=== PATIENT | male | born 1995 | race Caucasian/White ===

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

== ENCOUNTER 2017-09-01 12:28 | Emergency (ER) | payer OTHER ==
[2017-09-01 13:38] VITALS: BP 110/80
--- NOTE | 2017-09-01 14:51 | UC ---
Shoulder Pain HPI - HPI Summary HPI Summary: trapezous and left anterior shoulder pain for a few days---does push ups everyday but no other repetitive stress to shoulder---no acute injury - History of Current Complaint Chief Complaint: UCUpperExtremity Stated Complaint: LEFT SHOULDER PAIN Time Seen by Provider: 09/01/17 14:42 Hx Obtained From: Patient Onset/Duration: Sudden Onset, Lasting Days, Still Present Timing: Constant Severity Initially: Moderate Severity Currently: Moderate Location Of Pain: Is Discrete @ Pain Intensity: 7 Character: Aching Aggravating Factor(s): Movement, Lifting, Extension Related History: Dominant Hand Right - Allergies/Home Medications Allergies/Adverse Reactions: Allergies Allergy/AdvReac Type Severity Reaction Status Date / Time azithromycin Allergy Hives Verified 09/01/17 13:35 Home Medications: Home Medications Amitriptyline TAB* [Elavil TAB*] 25 mg PO BEDTIME 09/01/17 [History Confirmed ] PMH/Surg Hx/FS Hx/Imm Hx Previously Healthy: Yes Neurological History: Migraine - Surgical History Surgical History: None - Family History Known Family History: Negative: Cardiac Disease, Hypertension, Diabetes Family History: no cardio vascular issues in family lineage - Social History Occupation: Employed Full-time Lives: With Family Alcohol Use: None Substance Use Type: None Smoking Status (MU): Never Smoked Tobacco Type: Cigarettes Amount Used/How Often: 1 per week - Immunization History Most Recent Tetanus Shot: 10/2016 Review of Systems Constitutional: Negative Skin: Negative Eyes: Negative ENT: Negative Respiratory: Negative Cardiovascular: Negative Gastrointestinal: Negative Genitourinary: Negative Motor: Negative Neurovascular: Negative Musculoskeletal: Arthralgia - left shoulder, Myalgia - left shoulder Neurological: Negative Psychological: Negative Is Patient Immunocompromised?: No All Other Systems Reviewed And Are Negative: Yes Physical Exam Triage Information Reviewed: Yes Appearance: Well-Appearing, No Pain Distress, Well-Nourished Vital Signs: Initial Vital Signs Temp 98.5 F 09/01/17 13:32 Pulse 79 09/01/17 13:32 Resp 16 09/01/17 13:32 BP 110/80 09/01/17 13:32 Pulse Ox 100 09/01/17 13:32 Vital Signs Reviewed: Yes Eye Exam: Normal Eyes: Positive: Conjunctiva Clear ENT Exam: Normal ENT: Positive: Normal ENT inspection, Hearing grossly normal. Negative: Nasal congestion, Nasal drainage, Trismus, Muffled voice, Hoarse voice Dental Exam: Normal Neck exam: Normal Neck: Positive: Supple, Nontender, No Lymphadenopathy Respiratory Exam: Normal Respiratory: Positive: Chest non-tender, Lungs clear, Normal breath sounds, No respiratory distress, No accessory muscle use Cardiovascular Exam: Normal Cardiovascular: Positive: RRR, Pulses Normal, Brisk Capillary Refill Musculoskeletal Exam: Normal Musculoskeletal: Positive: Strength Intact, No Edema, ROM Limited @ - left shoulder Neurological Exam: Normal Neurological: Positive: Alert, Muscle Tone Normal Psychological Exam: Normal Skin Exam: Normal Shoulder Course/Dx - Course Assessment/Plan: nsaids, flexeril, physical therapy, stop push ups until pain resolved, follow with ortho prn - Differential Dx/Diagnosis Provider Diagnoses: Muscle strain left shoulder Discharge - Discharge Plan Condition: Stable Disposition: HOME Prescriptions: Cyclobenzaprine TAB* [Flexeril 10 MG TAB*] 10 mg PO TID PRN #15 tab PRN Reason: muscle tightness/spasm Naproxen Sodium [Naproxen Sodium 500 MG TAB] 500 mg PO BID PRN #40 tab PRN Reason: muscular skeletal pain Patient Education Materials: Shoulder Pain (ED) Referrals: Isreal Jacobsen MD [Medical Doctor] - If Needed
== END 2017-09-01 15:09 | disposition home or self-care (01) ==
LOC: UCCORT 12:28
DX: F17.210 Nicotine dependence, cigarettes, uncomplicated (principal); S46.912A Strain of unspecified muscle, fascia and tendon at shoulder and upper arm level, left arm, initial encounter; X50.3XXA Overexertion from repetitive movements, initial encounter; Y93.B2 Activity, push-ups, pull-ups, sit-ups; Y92.9 Unspecified place or not applicable
CPT/HCPCS: 99212; G0463

== ENCOUNTER 2019-07-30 11:35 | Emergency (ER) | payer OTHER ==
--- OUTSIDE RECORDS SUMMARY | 2019-07-30 13:05 | XMS REPORT | Continuity of Care Document ---
:1995 External Reference #:[id number] Author Name Carolyne Simeon NP Address [address] [place] [address] Care Team Providers Name Role Phone [facility] Care Team Information Clinical Applications Manager [phone] Kit Palacio PH.D. - Care Team Information Clinical Applications Manager [phone] [facility] Care Team Information Clinical Applications Manager - Mental Health Carolyne Simeon NP - Family Care Team Information Clinical Applications Manager [phone] Problems Active Problems Provider Date Nocturnal enuresis Zenon Clark DO Onset: 04/10/2005 Generalized anxiety disorder Ashlyn Brunner NP Onset: 09/09/2018 Moderate major depression, single episode Ashlyn Brunner NP Onset: Social History Type Date Description Comments Sex Unknown ETOH Use Denies alcohol use Tobacco Use Start: Unknown Patient has never smoked Smoking Status Reviewed: 05/29/19 Patient has never smoked Allergies, Adverse Reactions, Alerts Active Allergies Reaction Severity Comments Date Zithromax Hives 05/02/2017 Medications Active Medications SIG Qnty Indications Ordering Date Provider Citalopram One tab by mouth 30tabs F32.1 Dione Licea 06/09/2019 Hydrobromide daily until gone 10mg and then Tablets discontinue Bupropion take 1 tablet by 30tabs F41.1 Patyiovanyuko, 09/09/2018 Hydrochloride ER (XL) mouth once daily EMA Goldberg 150mg Tablets ER 24HR Buspirone HCL 1 up to three times 30tabs F41.1 Patyloy, 05/16/2018 5mg a day as needed for Ashlyn, [employer] Tablets anxiety Sumatriptan Succinate 1 by mouth at 14tabs G43.109 Mundona, 05/16/2018 earliest onset of Ashlyn, [employer] 50mg Tablets migraine symptoms, may repeat in 2 hours Meclizine HCL 1 by mouth three 30tabs H81.12 Leigh Colemanew, 05/14/2018 25mg times daily as DO Tablets needed for dizziness R42 Naproxen take 1 tablet twice a 60tabs Zenon Clark, 12/14/2010 375mg Tablets day if needed for headache with food History Medications Citalopram take 1 tablet 30tabs F41.1 Kannan, 03/27/2019 - Hydrobromide by mouth once Ashlyn, [employer] 06/09/2019 20mg daily Tablets Medications Administered in Office Medication SIG Qnty Indications Ordering Provider Date PPD Ashlyn Brunner NP 03/27/2019 Injection Immunizations CPT Code Status Date Vaccine Reaction Lot # [id number] Given 03/27/2019 Gardasil-9 (HPV) Nonavalent Im inj completed, Pt [id number] 2-3 Dose Schedule Im tolerated well 49578 Given 11/23/2018 Tdap (Adacel) Ages 7 And Above Only 44418 Given 05/02/2018 Gardasil-9 (HPV) Nonavalent Im inj completed, Pt [id number] 2-3 Dose Schedule Im tolerated well Q2036 Given 07/01/2017 Flulaval Immunization 46987 Given 04/15/2014 Influenza Virus Vaccine,Quadrivalent,Split, Preserv Free, 0.5mL,[place] [address] Given 03/18/2009 Menactra/Menveo Meningococcal Vaccine 04977 Given 03/16/2008 Tdap (Adacel) Ages 7 And Above Only 48939 Given 12/26/2001 IPV / Poliomyelitis Immunization 69431 Given 12/26/2001 DTaP Immunization 6 Yrs & Younger 47255 Given 12/26/2001 MMR Virus Immunization 95127 Given 02/15/2000 Varicella (Chicken Pox) PAPER CHART Immunization 32689 Given 04/18/1998 MMR Virus Immunization PAPER CHART 43532 Given 01/17/1998 DTP & Hib Immunization PAPER CHART 54917 Given 1995 Hepatitis B Vac PAPER CHART Ped/Adolescent 3 Dose Schedule 68322 Given 1997 DTP & Hib Immunization PAPER CHART 85165 Given 1997 Oral Poliovirus PAPER CHART Immunization 28014 Given 1997 DTP & Hib Immunization PAPER CHART 42323 Given 1997 Oral Poliovirus PAPER CHART Immunization 55331 Given 1997 Hepatitis B Vac PAPER CHART Ped/Adolescent 3 Dose Schedule 92622 Given 1997 DTP & Hib Immunization PAPER CHART 63976 Given 1997 IPV / Poliomyelitis PAPER CHART Immunization 84430 Given 1997 Hepatitis B Vac PAPER CHART Ped/Adolescent 3 Dose Schedule Q2039 Refused 03/27/2019 Flu Vaccine NOS Pt says he does not get flu shots. SATISH FERRIS 03/27/19 Q2039 Refused 09/09/2018 Flu Vaccine NOS Pt says he will not be getting a flu shot this year. SATISH FERRIS 09/09/18 Q2039 Refused 05/28/2018 Flu Vaccine NOS Pt states he has not yet gotten his flu shot. SATISH FERRIS 05/28/18 Vital Signs Date Vital Result Comment 06/09/2019 3:36pm Weight 226.00 lb Heart Rate 80 /min BP Systolic 128 mmHg BP Diastolic 72 mmHg Respiratory Rate 18 /min Height 69.25 inches 5'9.25" BMI (Body Mass Index) 33.1 kg/m2 05/29/2019 2:56pm Weight 225.00 lb Heart Rate 82 /min BP Systolic 132 mmHg BP Diastolic 72 mmHg Respiratory Rate 18 /min Height 69.25 inches 5'9.25" BMI (Body Mass Index) 33.0 kg/m2 Results Test Acquired Date Facility Test Result H/L Range Note GC/Chlamydia 05/29/2019 [facility] URINE, COLLECTIO 1 /Trich Ampl Description <SEE NOTE> Dna-RL C. Trachomatis NEGATIVE (Neg) 2 N. Gonorrhoeae NEGATIVE (Neg) 3 T Vaginalis NEGATIVE (Neg) 4 Comment IMPORTANT REM <SEE NOTE> 5 1 URINE, COLLECTION METHOD NOT SPECIFIED 2 THIS ASSAY AMPLIFIES AND DETECTS THE TARGET DNA USING REAL-TIME PCR. 3 THIS ASSAY AMPLIFIES AND DETECTS THE TARGET DNA USING REAL-TIME PCR. 4 THIS ASSAY AMPLIFIES AND DETECTS THE TARGET DNA USING REAL-TIME PCR. 5 IMPORTANT REMINDERS ABOUT URINE SPECIMEN COLLECTION THE PATIENT SHOULD NOT HAVE URINATED FOR AT LEAST ONE HOUR PRIOR TO COLLECTION. FEMALE PATIENTS SHOULD NOT CLEANSE PRIOR TO COLLECTING URINE SPECIMENS THIS MAY INTERFERE WITH THE TEST. THE PATIENT SHOULD PROVIDE 20-30 ML OF THE INITIAL URINE STREAM INTO A CONTAINER WITHOUT PRESERVATIVES. Unless otherwise specified, testing performed by [facility] [address] [place] [id number] Procedures Date Code Description Status 06/09/2019 49502 Brief Emotional/Behav Assessment W/ Scoring Doc Per Completed Standard Inst 04/30/2019 45535 Brief Emotional/Behav Assessment W/ Scoring Doc Per Completed Standard Inst 03/27/2019 17702 Brief Emotional/Behav Assessment W/ Scoring Doc Per Completed Standard Inst 12/23/2018 49150 Brief Emotional/Behav Assessment W/ Scoring Doc Per Completed Standard Inst Medical Devices Description No Information Available Encounters Type Date Location Provider Dx Diagnosis Office Visit 04/30/2019 [facility] Carolyne Simeon NP F41.1 Generalized anxiety 3:30p disorder F32.1 Major depressive disorder, single episode, moderate Office Visit 03/30/2019 9:15a [facility] Schedule, Nurses Z11.1 Encounter for screening for respiratory tuberculosis Office Visit 03/27/2019 11:30a [facility] Ashlyn Brunner, F41.1 Generalized anxiety [employer] disorder F32.1 Major depressive disorder, single episode, moderate Z68.33 Body mass index (BMI) 33.0-33.9, adult Z23 Encounter for immunization Z11.1 Encounter for screening for respiratory tuberculosis Office Visit 12/23/2018 11:30a [facility] Ashlyn Brunner, F32.1 Major depressive [employer] disorder, single episode, moderate F41.1 Generalized anxiety disorder R68.84 Jaw pain Z68.29 Body mass index (BMI) 29.0-29.9, adult Assessments Date Code Description Provider 06/09/2019 F32.1 Major depressive disorder, single episode, Carolyne Simeon NP moderate 06/09/2019 F41.1 Generalized anxiety disorder Carolyne Simeon NP 06/09/2019 Z68.33 Body mass index (BMI) 33.0-33.9, adult Carolyne Simeon NP 05/29/2019 Z11.3 Encounter for screening for infections Carolyne Simeon NP with a predominantly sexual mode of transmission 04/30/2019 F41.1 Generalized anxiety disorder Carolyne Simeon, EMA 04/30/2019 F32.1 Major depressive disorder, single episode, Carolyne Simeon NP moderate 03/30/2019 Z11.1 Encounter for screening for respiratory DigiovannaAnnieAshlyn, [employer]ER tuberculosis 03/30/2019 Z11.1 Encounter for screening for respiratory Schedule, Nurses tuberculosis 03/27/2019 F41.1 Generalized anxiety disorder DigiovannaAnnieAshlyn, DOOR [employer]SEM[employer]ER 03/27/2019 F32.1 Major depressive disorder, single episode, Digiovanna, Ashlyn, [employer] moderate 03/27/2019 Z68.33 Body mass index (BMI) 33.0-33.9, adult Ashlyn Brunner, [employer] 03/27/2019 Z23 Encounter for immunization DigioAnnie seguraricia, [employer]ER 03/27/2019 Z11.1 Encounter for screening for respiratory DigiovannaAnnieAshlyn, DOOR [employer]SEM[employer]ER tuberculosis 12/23/2018 F32.1 Major depressive disorder, single episode, Digiovanna, Ashlyn, [employer]ER moderate 12/23/2018 F41.1 Generalized anxiety disorder Digiovanna, Ashlyn, [employer]OR [employer]ER 12/23/2018 R68.84 Jaw pain Digioimelda, Ashlyn, [employer]ER 12/23/2018 Z68.29 Body mass index (BMI) 29.0-29.9, adult Ashlyn Brunner [employer] Plan of Treatment Future Appointment(s):07/10/2019 1:45 pm - Carolyne Simeon NP at [facility]06/09/2019 - Carolyne Simeon NPF32.1 Major depressive disorder, single episode, moderateNew Medication:Citalopram Hydrobromide 10 mg - One tab by mouth daily until gone and then discontinueComments:PHQ9: 10, down from 20Continue current dose of Bupropion and decrease celexa to 10 mg daily x 4 weeks then discontinue completely. Advised changing medication can cause acute symptoms to occur as well as thoughts of self-harm. Is agreeable to call if these develop or go directly to [facility].R[facility] for an evaluation. [facility]. Discussed benefits of initiating exercise program and incorporating well-balanced diet Will followFollow up:In one month for re- evaluation. Will need PHQ9 and CPU0N95.1 Generalized anxiety disorderComments: GAD7:8 up from 7, previously down from 12Plan as above.Z68.33 Body mass index ( BMI) 33.0-33.9, adultComments:Encouraged healthy well balanced diet with plenty of fluids and fiber.Attempt to increase daily exercise, aim for 60-90' daily. Functional Status Description No Information Available Mental Status Description No Information Available Referrals Refer to Reason for Referral Status Appt Date [facility] Mental Health Evaluation and treatment for Closed 04/03/2019 Clinic increasing depression and anxiety forms faxed in order for patient to go down and fill out packet in order to get an appointment scheduled/scg 03/27 contacted pt and he stated that he has had 3 office visits with mental health and is seeing them regularly 04/22 ms [facility] [id number] [phone]
[2019-07-30 13:21] VITALS: BP 137/80
[2019-07-30 13:42] LABS: Influenza A Molecular NEGATIVE (Negative); Influenza B Molecular NEGATIVE (Negative)
--- NOTE | 2019-07-30 13:43 | UC ---
Throat Pain/Nasal Natanael HPI - HPI Summary HPI Summary: 24-year-old male who has had cold symptoms with head congestion and dry cough over the past 2 weeks progressively worsening now with sinus pressure and postnasal drainage. He states nasal coryza is greenish yellow. States last evening he started having a fever and body aches, flulike symptoms. He did not get a flu shot in the fall. 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 - History of Current Complaint Chief Complaint: UCRespiratory Stated Complaint: FLU SYMP Time Seen by Provider: 07/30/19 13:13 Hx Obtained From: Patient Onset/Duration: Gradual Onset, Lasting Weeks Severity: Mild Pain Intensity: 4 Cough: Nonproductive Associated Signs & Symptoms: Positive: Sinus Discomfort, Nasal Discharge - Greenish yellow nasal discharge, Fever - Allergies/Home Medications Allergies/Adverse Reactions: Allergies Allergy/AdvReac Type Severity Reaction Status Date / Time azithromycin Allergy Hives Verified 07/30/19 13:21 Home Medications: Home Medications buPROPion TAB* [Wellbutrin TAB*] 15 mg PO QAM 07/30/19 [History Confirmed ] PMH/Surg Hx/FS Hx/Imm Hx Previously Healthy: Yes - Surgical History Surgical History: None - Family History Known Family History: Negative: Cardiac Disease, Hypertension, Diabetes Family History: no cardio vascular issues in family lineage - Social History Occupation: Employed Full-time Alcohol Use: None Substance Use Type: None Smoking Status (MU): Never Smoked Tobacco Type: Cigarettes Amount Used/How Often: 1 per week - Immunization History Most Recent Tetanus Shot: 10/2016 Review of Systems All Other Systems Reviewed And Are Negative: Yes Constitutional: Positive: Fever, Chills ENT: Positive: Nasal Discharge - Greenish yellow nasal coryza, Sinus Congestion , Sinus Pain/Tenderness Respiratory: Positive: Cough - Dry nonproductive cough Musculoskeletal: Positive: Myalgia Is Patient Immunocompromised?: No Physical Exam Triage Information Reviewed: Yes Appearance: Well-Appearing, No Pain Distress, Well-Nourished Vital Signs: Initial Vital Signs Temp 97.9 F 07/30/19 13:16 Pulse 82 07/30/19 13:16 Resp 20 07/30/19 13:16 BP 137/80 07/30/19 13:16 Pulse Ox 98 07/30/19 13:16 Vital Signs Reviewed: Yes Eyes: Positive: Conjunctiva Clear ENT: Positive: Hearing grossly normal, Pharynx normal - Yellowish postnasal drainage., Nasal congestion, Nasal drainage - Yellow nasal coryza., TMs normal - Left tympanic membrane is mildly injected but with good land henderson and light reflex., Sinus tenderness - Tenderness on palpation over the maxillary sinuses bilaterally., Uvula midline Neck: Positive: Supple, Nontender, No Lymphadenopathy Respiratory: Positive: Lungs clear, Normal breath sounds, No respiratory distress, No accessory muscle use Cardiovascular: Positive: RRR, No Murmur, Pulses Normal, Brisk Capillary Refill Musculoskeletal Exam: Normal Neurological Exam: Normal Psychological Exam: Normal Skin Exam: Normal Throat Pain/Nasal Course/Dx - Course Course Of Treatment: Rapid influenza test: Negative Patient is comfortable here and nontoxic. I'm going to treat him for a sinus infection. - Differential Dx/Diagnosis Provider Diagnosis: Sinusitis Discharge ED - Sign-Out/Discharge Documenting (check all that apply): Patient Departure All imaging exams completed and their final reports reviewed: No Studies - Discharge Plan Condition: Good Disposition: HOME Prescriptions: Amoxicillin PO (*) [Amoxicillin 875 MG (*)] 875 mg PO BID 10 Days #20 tab Patient Education Materials: Sinusitis (ED) Referrals: Carolyne Simeon NP [Primary Care Provider] - Additional Instructions: Increase fluids, [id number] cold medicine as directed, follow-up with your primary care provider if no improvement in 5-7 days. - Billing Disposition and Condition Condition: GOOD Disposition: Home
== END 2019-07-30 13:56 | disposition home or self-care (01) ==
LOC: UCCORT 11:35
DX: J32.9 Chronic sinusitis, unspecified (principal); R05 Cough; Z88.1 Allergy status to other antibiotic agents
CPT/HCPCS: 99212; G0463